=== PATIENT | female | born 1980 | race Caucasian/White ===

== ENCOUNTER 2016-12-12 10:00 | Emergency (ER) | payer SELFPAY ==
[~2016-12-12 10:00] MED LIST: DENIES HOME MEDS
== END 2016-12-12 12:07 | disposition home or self-care (01) ==
LOC: ER 10:00
PROC: 2W39X1Z Immobilization of Left Upper Extremity using Splint (ICD-10-PCS; principal; 2016-12-12)
DX: S40.022A Contusion of left upper arm, initial encounter (principal); I10 Essential (primary) hypertension; E11.9 Type 2 diabetes mellitus without complications; Z88.0 Allergy status to penicillin; Z88.5 Allergy status to narcotic agent; Z88.6 Allergy status to analgesic agent; Z91.040 Latex allergy status; W01.0XXA Fall on same level from slipping, tripping and stumbling without subsequent striking against object, initial encounter
CPT/HCPCS: 73030-LT; 73080-LT; 73110-LT; 73130-LT; 96372; 99283; J1885